=== PATIENT | male | born 1980 | race Caucasian/White ===

== ENCOUNTER 2019-11-11 23:53 | Emergency (ER) | payer OTHER ==
[~2019-11-11] VITALS: Ht 198.1 cm; Wt 104.5 kg
[2019-11-12] MEDS ORDERED: AMOX-117 PO (00:04)
[2019-11-12] MEDS ORDERED: bacitracin 15gm ointment TP ONE (00:10)
[2019-11-12] MEDS ORDERED: amox tr/potassium clavulanate 500mg/125mg TAB PO ONE (00:10)
[2019-11-12 00:20] VITALS: BP 133/87
[2019-11-12] MEDS ORDERED: LIDOcaine 1% W/epiNEPHrine 1:200,000 10ml vial IJ ONE (00:25)
== END 2019-11-12 01:11 | disposition home or self-care (01) ==
LOC: ER 23:53
DX: S61.210A Laceration without foreign body of right index finger without damage to nail, initial encounter (principal); Z79.2 Long term (current) use of antibiotics; W50.3XXA Accidental bite by another person, initial encounter; Y93.89 Activity, other specified; Y92.89 Other specified places as the place of occurrence of the external cause; Y99.8 Other external cause status
CPT/HCPCS: 12001; 73130; 99283